=== PATIENT | female | born 1945 | race Hispanic/Latino ===

== ENCOUNTER → 2017-05-17 | Outpatient (CLI) | payer MEDICARE ==
[~2017-05-17] MED LIST: ASPI-1181 PO; BIOT10004 PO; CHOL200026 PO; CHOL40003 PO; CYAN10009 PO; FENO54TA6 PO; FURO40TA7 PO; GABA-531 PO; GLUC100019 PO; IMIP25TA5 PO; LOSA50TA37 PO; MELA10TA2 PO; METF500T6 PO; METO-391 PO; METO25 PO; OMEG-98 PO; OXYB10TA PO; POTA-9 PO; PRAM1TAB3 PO; PRAV40TA3 PO; PYRI200T10 PO; SPIR25TA PO; VENL75TA63 PO
== END | disposition home or self-care (01) ==
LOC: SHCH 12:37
PROVIDERS: ATTEND Internal Medicine Cardiovascular Disease
DX: I11.0 Hypertensive heart disease with heart failure (principal); I50.21 Acute systolic (congestive) heart failure; I08.2 Rheumatic disorders of both aortic and tricuspid valves; I25.3 Aneurysm of heart; I27.20 Pulmonary hypertension, unspecified
CPT/HCPCS: 93306

== ENCOUNTER → 2017-05-31 | Outpatient (CLI) | payer MEDICARE | END | disposition home or self-care (01) | LOC: RAH 15:23 | PROVIDERS: ATTEND Internal Medicine | DX: M25.511 Pain in right shoulder (principal) | CPT/HCPCS: 73030 ==

== ENCOUNTER 2017-06-30 06:24 | Day surgery (SDC) | payer BC, MEDICARE ==
[2017-06-27 12:53] LABS: BASOPHILS % (AUTO) 0.7 % (0.0-5.0); EOSINOPHILS % (AUTO) 1.6 % (0.0-8.0); HEMATOCRIT 39.9 % (36-48); LYMPHOCYTES % (AUTO) 25.4 % (21.0-51.0); MEAN CORPUSCULAR HEMOGLOBIN 29.6 pg (27.0-33.0); MEAN CORPUSCULAR HGB CONC 33.9 g/dL (32.0-36.0); MEAN CORPUSCULAR VOLUME 87.2 fL (79-99); MONOCYTES % (AUTO) 6.1 % (3.0-13.0); NEUTROPHILS % (AUTO) 66.2 % (40.0-77.0); PLATELET COUNT (AUTO) 366 K/uL (130-400); RED BLOOD CELL COUNT(AUTO) 4.58 MIL/uL (4.00-5.50); RED CELL DISTRIBUTION WIDTH 13.3 % (11.0-15.5); WHITE BLOOD COUNT (AUTO) 8.1 K/uL (4.8-10.8)
[2017-06-27 13:16] LABS: CREATININE 0.9 mg/dL (0.5-1.5); POTASSIUM 4.8 mmol/L (3.5-5.1)
[2017-06-27 13:23] LABS: APPEARANCE,URINE Clear (CLEAR); BILIRUBIN,URINE Negative (NEGATIVE); COLOR,URINE Yellow (YELLOW); GLUCOSE, URINE (UA) Negative (NEGATIVE); KETONES,URINE Negative (NEGATIVE); LEUKOCYTE ESTERASE ,URINE Trace (NEGATIVE); NITRATE,URINE Positive (NEGATIVE); OCCULT BLOOD,URINE Moderate (NEGATIVE); PROTEIN,URINE 300 (NEGATIVE)
[2017-06-27 13:27] VITALS: BP 178/84
[2017-06-27 13:44] LABS: BACTERIA,URINE Moderate /HPF (None Seen)
[2017-06-27 13:45] LABS: YEAST,URINE BUDDING Few /HPF (None Seen)
[~2017-06-30] VITALS: Ht 160 cm; Wt 94.1 kg
[2017-06-30] VITALS (13 sets, daily range): BP systolic 117–146; BP diastolic 65–83
[~2017-06-30 06:24] MED LIST changes: +BOTULINUM TOXIN TYPE A 100 UNITS/VIAL INJ SCH; +CEFTRIAXONE SODIUM 1 GM IVP SCH
[2017-06-30] MEDS ORDERED: CEFTRIAXONE SODIUM 1 GM ONE (07:04)
[2017-06-30] MEDS ORDERED: LACTATED RINGERS 1000ML 1,000 ML IV ONE (07:04)
[2017-06-30] MEDS ORDERED: ONDANSETRON HCL 4 MG/2 ML VIAL ONE (07:18)
[2017-06-30] MEDS ORDERED: LIDOCAINE PF 2% 5ML ABBOJECT ONE (07:18)
[2017-06-30] MEDS ORDERED: DEXAMETHASONE SOD PHOSPHATE 10MG/ML 1ML VIAL ONE (07:18)
[2017-06-30] MEDS ORDERED: MIDAZOLAM HCL 1 MG/ML 2ML VIAL ONE (07:18)
[2017-06-30] MEDS ORDERED: GLYCOPYRROLATE 0.2 MG/ML 5 ML VIAL ONE (07:18)
[2017-06-30] MEDS ORDERED: PROPOFOL 10 MG/ML 20ML VIAL IV ONE (07:19)
[2017-06-30] MEDS ORDERED: FENTANYL CITRATE PF 50 MCG/1 ML 2ML VIAL ONE (07:19)
[2017-06-30] MEDS: CEFTRIAXONE SODIUM 1 GM IVP SCH ×2 (08:00→08:31)
[2017-06-30] MEDS ORDERED: BOTULINUM TOXIN TYPE A 100 UNITS/VIAL INJ SCH (08:00)
[2017-06-30] MEDS ORDERED: EPHEDRINE SULFATE 50 MG/ML AMPULE ONE (08:51)
== END 2017-06-30 10:58 | disposition home or self-care (01) ==
LOC: DAH 06:24
PROVIDERS: ATTEND Urology
DX: N39.41 Urge incontinence (principal); Z86.73 Personal history of transient ischemic attack (TIA), and cerebral infarction without residual deficits; I11.0 Hypertensive heart disease with heart failure; I50.9 Heart failure, unspecified; Z79.899 Other long term (current) drug therapy; Z85.3 Personal history of malignant neoplasm of breast
CPT/HCPCS: 36415; 52287; 80048; 81001; 82948 ×2; 85025; 87088; 87186; 93005; A4215; A4218; A4600; J0696; J1100; J2001; J2250; J2405; J2704; J3010; J3490 ×2; J7120

== ENCOUNTER 2018-07-20 06:25 | Day surgery (SDC) | payer MEDICARE ==
[2018-07-18 16:45] VITALS: BP 174/73
[2018-07-18 17:03] LABS: APPEARANCE,URINE Clear (CLEAR); BILIRUBIN,URINE Negative (NEGATIVE); COLOR,URINE Yellow (YELLOW); GLUCOSE, URINE (UA) Negative (NEGATIVE); KETONES,URINE Negative (NEGATIVE); LEUKOCYTE ESTERASE ,URINE Small (NEGATIVE); NITRATE,URINE Positive (NEGATIVE); OCCULT BLOOD,URINE Large (NEGATIVE); PROTEIN,URINE POS 2+ mg/dL (NEGATIVE)
[2018-07-18 17:14] LABS: BACTERIA,URINE Many /HPF (None Seen)
[2018-07-18 17:57] LABS: BASOPHILS % (AUTO) 1.1 % (0.0-5.0); EOSINOPHILS % (AUTO) 1.6 % (0.0-8.0); LYMPHOCYTES % (AUTO) 30.7 % (21.0-51.0); MEAN CORPUSCULAR HEMOGLOBIN 29.1 pg (27.0-33.0); MEAN CORPUSCULAR HGB CONC 33.6 g/dL (32.0-36.0); MEAN CORPUSCULAR VOLUME 86.6 fL (79-99); MONOCYTES % (AUTO) 9.1 % (3.0-13.0); NEUTROPHILS % (AUTO) 57.5 % (40.0-77.0); PLATELET COUNT (AUTO) 322 K/uL (130-400); RED BLOOD CELL COUNT(AUTO) 4.74 MIL/uL (4.00-5.50); RED CELL DISTRIBUTION WIDTH 13.3 % (11.0-15.5); WHITE BLOOD COUNT (AUTO) 9.3 K/uL (4.8-10.8)
[2018-07-18 18:17] LABS: CREATININE 0.9 mg/dL (0.5-1.5); POTASSIUM 4.3 mmol/L (3.5-5.1)
--- NOTE | 2018-07-19 17:12 | NUR ---
ABNORMAL UA AND CULTURE RESULTS FAXED TO DR. CHRISTIAN OFFICE PER TEA.
[~2018-07-20] VITALS: Ht 160 cm; Wt 92.9 kg
[~2018-07-20 06:25] MED LIST changes: -BIOT10004 PO; -BOTULINUM TOXIN TYPE A 100 UNITS/VIAL INJ SCH; -CEFTRIAXONE SODIUM 1 GM IVP SCH; -CHOL200026 PO; -CHOL40003 PO; -CYAN10009 PO; -FURO40TA7 PO; -GABA-531 PO; -GLUC100019 PO; -LOSA50TA37 PO; +LOSA50TA64 PO; -MELA10TA2 PO; +METF-444 PO; -METF500T6 PO; -METO-391 PO; +METO-409 PO; -METO25 PO; -OMEG-98 PO; -POTA-9 PO; -PYRI200T10 PO; +VENL-63 PO; -VENL75TA63 PO
[2018-07-20 06:56] VITALS: BP 136/81
[2018-07-20] MEDS ORDERED: SODIUM CHLORIDE 0.9% 1000ML 1,000 ML IV ONE (07:15)
[2018-07-20] MEDS ORDERED: CEFTRIAXONE SODIUM 1 GM ONE (07:15)
[2018-07-20] MEDS ORDERED: BOTULINUM TOXIN TYPE A 100 UNITS/VIAL INJ SCH (07:30)
[2018-07-20] MEDS ORDERED: CEFTRIAXONE SODIUM 1 GM IVP SCH (07:30)
[2018-07-20] MEDS ORDERED: LIDOCAINE HCL 2% PF 20 ML JEL DISP.SYRIN MM ONE (07:38)
[2018-07-20 08:07] LABS: BILIRUBIN,URINE SMALL (NEGATIVE); COLOR,URINE YELLOW (YELLOW); GLUCOSE, URINE (UA) NEGATIVE (NEGATIVE); KETONES,URINE NEGATIVE (NEGATIVE); LEUKOCYTE ESTERASE ,URINE MODERATE (NEGATIVE); NITRATE,URINE POSITIVE (NEGATIVE); OCCULT BLOOD,URINE MODERATE (NEGATIVE); PH,URINE 5.5 (5.0-8.0); PROTEIN,URINE 100 mg/dL (NEGATIVE)
[2018-07-20 08:08] LABS: APPEARANCE,URINE SLIGHTLY CLOUDY (CLEAR)
--- NOTE | 2018-07-20 08:09 | NUR ---
Dr Hwang here, reviewed chart .positive nitrites in urine . ordered a straight cath urine Addendum: 07/20/18 at 0813 by CARLOS RODRIGUEZ RN RN Amended: Links added.
[2018-07-20 08:16] LABS: BACTERIA,URINE Many /HPF (None Seen); MUCUS,URINE Few LPF (None Seen); RBC,URINE 0-1 /HPF (0-1); SQUAMOUS EPITHELIAL CELL,UR Rare /HPF (0-2); WBC,URINE >100 /HPF (0-1)
--- NOTE | 2018-07-20 08:45 | NUR ---
CANCELLED pt urine resulted from cath UA nitrites positive ,DR Hwang cancelled case will reschedule at later date due to pt is going on vacation for 2 weeks Addendum: 07/20/18 at 1209 by CARLOS RODRIGUEZ RN RN Amended: Links added.
== END 2018-07-20 08:45 | disposition home or self-care (01) ==
LOC: DAH 06:25
PROVIDERS: ATTEND Urology
DX: N39.46 Mixed incontinence (principal); Z53.8 Procedure and treatment not carried out for other reasons
CPT/HCPCS: 36415; 80048; 81001 ×2; 82948; 85025; 87077; 87088; 87186; 93005; J0585; J7030; J0696

== ENCOUNTER 2018-09-07 08:12 | Day surgery (SDC) | payer MEDICARE ==
[2018-09-04 15:57] LABS: BASOPHILS % (AUTO) 0.7 % (0.0-5.0); EOSINOPHILS % (AUTO) 1.8 % (0.0-8.0); HEMATOCRIT 38.6 % (36-48); LYMPHOCYTES % (AUTO) 23.3 % (21.0-51.0); MEAN CORPUSCULAR HEMOGLOBIN 29.3 pg (27.0-33.0); MEAN CORPUSCULAR HGB CONC 33.4 g/dL (32.0-36.0); MEAN CORPUSCULAR VOLUME 87.7 fL (79-99); MONOCYTES % (AUTO) 6.6 % (3.0-13.0); NEUTROPHILS % (AUTO) 67.6 % (40.0-77.0); PLATELET COUNT (AUTO) 306 K/uL (130-400); RED CELL DISTRIBUTION WIDTH 13.4 % (11.0-15.5); WHITE BLOOD COUNT (AUTO) 8.9 K/uL (4.8-10.8)
[2018-09-04 15:58] LABS: APPEARANCE,URINE CLOUDY (CLEAR); BILIRUBIN,URINE SMALL (NEGATIVE); COLOR,URINE YELLOW (YELLOW); GLUCOSE, URINE (UA) NEGATIVE (NEGATIVE); KETONES,URINE 5 mg/dL (NEGATIVE); LEUKOCYTE ESTERASE ,URINE TRACE (NEGATIVE); NITRATE,URINE NEGATIVE (NEGATIVE); OCCULT BLOOD,URINE LARGE (NEGATIVE); PROTEIN,URINE 100 mg/dL (NEGATIVE); UROBILINOGEN,URINE >=8.0 mg/dL (0.2-1.0)
--- NOTE | 2018-09-04 16:05 | NUR ---
EKG INFORMED DR. ARAUJO OF ABNORMAL EKG. NO ORDERS RECEIVED. PROCEED WITH PLANNED PROCEDURE.
[2018-09-04 16:07] VITALS: BP 168/80
[2018-09-04 16:11] LABS: CREATININE 1.2 mg/dL (0.5-1.5)
[2018-09-04 16:52] LABS: RBC,URINE >100 /HPF (0-1)
[2018-09-04 16:53] LABS: BACTERIA,URINE Rare /HPF (None Seen); SQUAMOUS EPITHELIAL CELL,UR Rare /HPF (0-2)
--- NOTE | 2018-09-06 10:43 | NUR ---
RIGHT CAST INFORMED KENY AT [facility]INGERS OFFICE OF PT HAVING CAST TO RIGHT WRIST/FOREARM
--- NOTE | 2018-09-06 11:03 | NUR ---
UA FAXED UA C/S REPORT TO KENY AT DR. KENNEDY OFFICE.
[2018-09-07] VITALS (13 sets, daily range): BP systolic 144–183; BP diastolic 70–100
[~2018-09-07] VITALS: Ht 157.5 cm; Wt 93.3 kg
[~2018-09-07 08:12] MED LIST changes: +BIOT10004 PO; +BOTULINUM TOXIN TYPE A 100 UNITS/VIAL INJ SCH; +CEFTRIAXONE SODIUM 1 GM IVP SCH; +CHOL200013 PO; -FENO54TA6 PO; +GABA-531 PO; +GLUC-145 PO; +METO-391 PO; -SPIR25TA PO; +VITAMIN B12 PO
[2018-09-07] MEDS ORDERED: SODIUM CHLORIDE 0.9% 1000ML 1,000 ML IV ONE (08:49)
[2018-09-07] MEDS ORDERED: LIDOCAINE PF 2% 5ML ABBOJECT ONE (09:29)
[2018-09-07] MEDS ORDERED: SUCCINYLCHOLINE 200MG/10ML SYR ONE (09:29)
[2018-09-07] MEDS ORDERED: DEXAMETHASONE SOD PHOSPHATE 10MG/ML 1ML VIAL ONE (09:29)
[2018-09-07] MEDS ORDERED: GLYCOPYRROLATE 1 MG/5 ML SYRINGE ONE (09:30)
[2018-09-07] MEDS ORDERED: ONDANSETRON HCL 4 MG/2 ML VIAL ONE (09:30)
[2018-09-07] MEDS ORDERED: NEOSTIGMINE 5MG/5ML SYR IV ONE (09:30)
[2018-09-07] MEDS ORDERED: ROCURONIUM 10MG/1ML SYR 10 MG/ML ML ONE (09:30)
[2018-09-07] MEDS ORDERED: FENTANYL CITRATE PF 50 MCG/1 ML 2ML VIAL ONE (09:30)
[2018-09-07] MEDS ORDERED: PROPOFOL 10 MG/ML 20ML VIAL IV ONE (09:30)
[2018-09-07] MEDS ORDERED: MIDAZOLAM HCL 1 MG/ML 2ML VIAL ONE (09:30)
[2018-09-07] MEDS ORDERED: LIDOCAINE HCL 2% PF 20 ML JEL DISP.SYRIN MM ONE (10:24)
== END 2018-09-07 12:50 | disposition home or self-care (01) ==
LOC: DAH 08:12
PROVIDERS: ATTEND Urology
DX: N39.46 Mixed incontinence (principal); R23.3 Spontaneous ecchymoses; E11.9 Type 2 diabetes mellitus without complications; I11.0 Hypertensive heart disease with heart failure; I50.9 Heart failure, unspecified; Z85.41 Personal history of malignant neoplasm of cervix uteri; Z85.42 Personal history of malignant neoplasm of other parts of uterus; Z98.890 Other specified postprocedural states; Z85.3 Personal history of malignant neoplasm of breast; Z79.84 Long term (current) use of oral hypoglycemic drugs; Z79.82 Long term (current) use of aspirin; Z83.3 Family history of diabetes mellitus; Z82.3 Family history of stroke; Z82.49 Family history of ischemic heart disease and other diseases of the circulatory system
CPT/HCPCS: 36415; 52287; 80048; 81001; 82948 ×2; 85025; 87077; 87088; 87186; 93005; 96374; A4215; A4358; A4600; J0330; J0585; J0696 ×2; J1100; J2001; J2250; J2405; J2704; J2710; J3010; J3490; J7030 ×2

== ENCOUNTER → 2018-11-14 | Outpatient (CLI) | payer MEDICARE ==
[~2018-11-14] MED LIST changes: -BIOT10004 PO; -BOTULINUM TOXIN TYPE A 100 UNITS/VIAL INJ SCH; -CEFTRIAXONE SODIUM 1 GM IVP SCH; -CHOL200013 PO; +FENO54TA6 PO; -GABA-531 PO; -GLUC-145 PO; -IMIP25TA5 PO; -METO-409 PO; -OXYB10TA PO; +PRAM0.258 PO; -PRAM1TAB3 PO; +SPIR25TA6 PO; -VITAMIN B12 PO
== END | disposition home or self-care (01) ==
LOC: RAH 10:58
PROVIDERS: ATTEND Internal Medicine
DX: N63.41 Unspecified lump in right breast, subareolar (principal); I63.09 Cerebral infarction due to thrombosis of other precerebral artery; M60.9 Myositis, unspecified; Z85.3 Personal history of malignant neoplasm of breast
CPT/HCPCS: 76641; 77065

== ENCOUNTER 2018-11-16 07:28 | Day surgery (SDC) | payer MEDICARE ==
[2018-11-13 14:41] VITALS: BP 153/84
[2018-11-13 14:46] LABS: BASOPHILS % (AUTO) 0.9 % (0.0-5.0); EOSINOPHILS % (AUTO) 2.1 % (0.0-8.0); HEMATOCRIT 41.3 % (36-48); LYMPHOCYTES % (AUTO) 24.8 % (21.0-51.0); MEAN CORPUSCULAR HEMOGLOBIN 29.9 pg (27.0-33.0); MONOCYTES % (AUTO) 6.8 % (3.0-13.0); NEUTROPHILS % (AUTO) 65.4 % (40.0-77.0); PLATELET COUNT (AUTO) 351 K/uL (130-400); RED CELL DISTRIBUTION WIDTH 13.1 % (11.0-15.5); WHITE BLOOD COUNT (AUTO) 8.2 K/uL (4.8-10.8)
[2018-11-13 14:49] LABS: APPEARANCE,URINE CLOUDY (CLEAR); BILIRUBIN,URINE NEGATIVE (NEGATIVE); COLOR,URINE YELLOW (YELLOW); GLUCOSE, URINE (UA) NEGATIVE (NEGATIVE); KETONES,URINE 5 mg/dL (NEGATIVE); LEUKOCYTE ESTERASE ,URINE MODERATE (NEGATIVE); NITRATE,URINE NEGATIVE (NEGATIVE); OCCULT BLOOD,URINE MODERATE (NEGATIVE); PH,URINE 5.5 (5.0-8.0); PROTEIN,URINE 100 mg/dL (NEGATIVE); UROBILINOGEN,URINE 0.2 mg/dL (0.2-1.0)
--- NOTE | 2018-11-13 15:21 | NUR ---
ABNORMAL EKG INFORMED DR ARAUJO REGARDING PATIENT'S ABNORMAL EKG. PER DR ARAUJO, EKG LOOKS OK AND MAY PROCEED WITH SCHEDULED PROCEDURE.
[2018-11-13 15:40] LABS: BACTERIA,URINE Few /HPF (None Seen); WBC,URINE 26-50 /HPF (0-1)
[2018-11-13 15:41] LABS: SQUAMOUS EPITHELIAL CELL,UR Few /HPF (0-2); TRANSITIONAL EPI CELLS,URINE Rare /HPF (None Seen)
[2018-11-13 15:47] LABS: CREATININE 1.3 mg/dL (0.5-1.5); POTASSIUM 3.8 mmol/L (3.5-5.1)
--- NOTE | 2018-11-15 17:00 | NUR ---
[facility] FAXED AND LEFT MESSAGE ON VOICEMAIL TO REPORT ABNORMAL UA/SUSCEPTIBILITY CHART. [phone]. WILL AWAIT RESPONSE
--- NOTE | 2018-11-15 17:11 | NUR ---
MARIA VICTORIA BUSTILLO, ON PHONE. PER DR. CHRISTIAN PROCEED WITH PLANNED PROCEDURE.
[~2018-11-16] VITALS: Ht 160 cm; Wt 90.9 kg
[2018-11-16] VITALS (18 sets, daily range): BP systolic 93–135; BP diastolic 51–69
[2018-11-16] MEDS ORDERED: SODIUM CHLORIDE 0.9% 1000ML 1,000 ML IV ONE (07:55)
[2018-11-16] MEDS: CEFTRIAXONE SODIUM 1 GM IVP SCH ×2 (08:00→10:35)
[2018-11-16] MEDS: BOTULINUM TOXIN TYPE A 100 UNITS/VIAL INJ SCH ×2 (08:00→10:45)
[2018-11-16] MEDS ORDERED: ONDANSETRON HCL 4 MG/2 ML VIAL ONE (08:16)
[2018-11-16] MEDS ORDERED: GLYCOPYRROLATE 1 MG/5 ML SYRINGE ONE (08:16)
[2018-11-16] MEDS ORDERED: DEXAMETHASONE SOD PHOSPHATE 10MG/ML 1ML VIAL ONE (08:16)
[2018-11-16] MEDS ORDERED: MIDAZOLAM HCL 1 MG/ML 2ML VIAL ONE (08:16)
[2018-11-16] MEDS ORDERED: SUCCINYLCHOLINE 200MG/10ML SYR ONE (08:16)
[2018-11-16] MEDS ORDERED: NEOSTIGMINE 5MG/5ML SYR IV ONE (08:16)
[2018-11-16] MEDS ORDERED: PROPOFOL 10 MG/ML 20ML VIAL IV ONE (08:16)
[2018-11-16] MEDS ORDERED: LIDOCAINE PF 2% 5ML ABBOJECT ONE (08:16)
[2018-11-16] MEDS ORDERED: ROCURONIUM 10MG/1ML SYR 10 MG/ML ML ONE (08:17)
[2018-11-16] MEDS ORDERED: FENTANYL CITRATE PF 50 MCG/1 ML 2ML VIAL ONE (08:17)
[2018-11-16] MEDS ORDERED: EPHEDRINE SULFATE 50 MG/ML AMPULE ONE (10:45)
[2018-11-16] MEDS ORDERED: PHENYLEPHRINE HCL 10 MG/ML 1ML VIAL IV ONE (11:05)
== END 2018-11-16 12:50 | disposition home or self-care (01) ==
LOC: DAH 07:28
PROVIDERS: ATTEND Urology
DX: N30.40 Irradiation cystitis without hematuria (principal); N39.46 Mixed incontinence; E11.9 Type 2 diabetes mellitus without complications; I11.0 Hypertensive heart disease with heart failure; I50.9 Heart failure, unspecified; Z98.890 Other specified postprocedural states; Z90.710 Acquired absence of both cervix and uterus; Z85.42 Personal history of malignant neoplasm of other parts of uterus; Z85.3 Personal history of malignant neoplasm of breast; Z85.41 Personal history of malignant neoplasm of cervix uteri; Z79.899 Other long term (current) drug therapy; Z79.82 Long term (current) use of aspirin; Z79.84 Long term (current) use of oral hypoglycemic drugs; Z82.3 Family history of stroke; Z82.49 Family history of ischemic heart disease and other diseases of the circulatory system
CPT/HCPCS: 36415; 52287; 71045; 80048; 81001; 82948 ×3; 85025; 87077; 87088; 87186; 93005; A4215 ×2; A4221; A4222; A4223; A4358; A4600; A4663; A6260; J0330; J0585; J0696; J1100; J2001; J2250; J2370; J2405; J2704; J2710; J3010; J3490 ×2; J7030; J7120

== ENCOUNTER → 2018-12-18 | Outpatient (CLI) | payer MEDICARE ==
[2018-12-18 08:51] LABS: INR 0.98 (0.85-1.15); PARTIAL THROMBOPLASTIN TIME 27.8 SEC (26.3-35.5); PROTHROMBIN TIME 10.3 SEC (9.6-11.6)
--- NOTE | 2018-12-18 09:05 | NUR ---
U/S GUIDED BIOPSY RIGHT BREAST NODULE PROCEDURE PERFORMED BY DR. DOHERTY. PUNCTURE SITE RIGHT BREAST 9 OCLOCK. PATIENT TOLERATED PROCEDURE WELL. SPECIMEN X 3 COLLECTED. END OF PROCEDURE AT 0910. TISSUE MARKER PLACED TO RIGHT BREAST NODULE BIOPSY AREA. BIOPSY NEEDLE REMOVED AND DRESSING APPLIED. NO BLEEDING NOTED. DISCHARGE INSTRUCTIONS GIVEN TO PATIENT AND VERBALIZED UNDERSTANDING. DISCHARGED AT 0930 AMBULATORY. PT STABLE, AAO X 3, WITH NO C/O PAIN.
== END | disposition home or self-care (01) ==
LOC: RAH 08:03
PROVIDERS: ATTEND Internal Medicine
DX: D24.1 Benign neoplasm of right breast (principal); I50.9 Heart failure, unspecified; Z79.84 Long term (current) use of oral hypoglycemic drugs; Z79.82 Long term (current) use of aspirin; Z79.899 Other long term (current) drug therapy; Z82.49 Family history of ischemic heart disease and other diseases of the circulatory system; Z83.3 Family history of diabetes mellitus
CPT/HCPCS: 19083; 36415; 85730; 85610; 88305; A4215 ×3; 76942